=== PATIENT | female | born 1975 | race Caucasian/White ===

== ENCOUNTER 2016-08-21 10:57 | Emergency (ER) | payer BC ==
[2016-08-21 11:16] VITALS: BP 99/58
--- NOTE | 2016-08-21 15:19 | UC ---
Deborah Reardon Claudia, scribed for Judy Pace DO on 08/21/16 at 1305 . Skin Complaint HPI - HPI Summary HPI Summary: 41 year old female presents to the [facility] with discrete facial swelling. Pt notes sudden onset Monday night. She notes that she was doing insomnia exercises where she tightens all the muscles in her body and then relaxes them in efforts to help her sleep. Pt notes that while doing this exercise she felt a "jennifer/snap " from her left lower neck below the mandible. PMHx of TMJ is noted. Pt states since sudden osnet the pain /10 has been constant but the swelling around the left lower jaw and left neck has been consistent and concerned her. Pt notes her Sx are not interfering with her eating, drinking or breathing and she is not having any increased pain while opening and closing her jaw. Pt denies any fever, chills, cough sore throat,N/V/D, abd pain, dizziness, lightheadedness, CP , SOB, muscle/joint pain. PMHx of TMJ, anxiety, OCD - History of Current Complaint Chief Complaint: UC Time Seen by Provider: 08/21/16 12:55 Stated Complaint: FACIAL SWELLING Hx Obtained From: Patient Hx Last Menstrual Period: n/a Onset/Duration: Sudden Onset, Lasting Days, Still Present Onset Severity: Mild - mild-mod Current Severity: Mild - mild-mod Pain Intensity: 4 Location: Other - left jaw Character: Swelling Aggravating: Nothing Alleviating: Nothing Associated Signs & Symptoms: Positive: Tenderness. Negative: Nausea, Vomiting, Diaphoresis, Weakness, Difficulty Breathing, Fever, Chills, Cough, Wheezing, Chest Pain, Hoarseness, Throat Tightening, Abdominal Pain, Lightheadedness, Syncope, Red Streaks - Allergy/Home Medications Allergies/Adverse Reactions: Allergies Allergy/AdvReac Type Severity Reaction Status Date / Time Iodine Allergy Severe Difficulty Verified 08/21/16 11:16 Breathing Shellfish Allergy Allergy Severe Difficulty Verified 08/21/16 11:16 Breathing Home Medications: Home Medications Albuterol HFA INHALER* [Ventolin HFA Inhaler*] 2 PRN 08/21/16 [History] Fluvoxamine (NF) [Luvox (NF)] 100 DAILY 08/21/16 [History] LORazepam TAB(*) [Ativan TAB(*)] 1 PRN 08/21/16 [History] Review of Systems Constitutional: Negative Skin: Other - facial swelling discrete over the left neck, no redness, calor, skin break down Eyes: Negative ENT: Negative Respiratory: Negative Cardiovascular: Negative Gastrointestinal: Negative Genitourinary: Negative Motor: Negative Neurovascular: Negative Musculoskeletal: Negative Neurological: Negative Psychological: Negative All Other Systems Reviewed And Are Negative: Yes PMH/Surg Hx/FS Hx/Imm Hx Previously Healthy: Yes Endocrine History Of: Denies: Diabetes Cardiovascular History Of: Denies: Hypertension, Pacemaker/ICD Respiratory History Of: Reports: Asthma - Surgical History Surgical History: Yes Surgery Procedure, Year, and Place: T&A. TUBAL. PARTIAL HYSTERECTOMY. LAP BAND SURGERY - Family History Known Family History: Positive: Cardiac Disease, Hypertension, Diabetes - Social History Occupation: Employed Full-time Lives: With Family Alcohol Use: Occasionally Substance Use Type: None Smoking Status (MU): Never Smoked Tobacco Physical Exam Triage Information Reviewed: Yes Appearance: Well-Appearing, No Pain Distress, Well-Nourished Vital Signs: Initial Vital Signs Temp 98.6 F 08/21/16 11:08 Pulse 100 08/21/16 11:08 Resp 18 08/21/16 11:08 BP 99/58 08/21/16 11:08 Pulse Ox 98 08/21/16 11:08 Vital Signs Reviewed: Yes Eyes: Positive: Conjunctiva Clear. Negative: Discharge ENT: Positive: Hearing grossly normal, TMs normal. Negative: Muffled/hoarse voice Neck: Positive: Other: - swelling over the left TMJ, tender on the sternocleidomastoid, temporalis and scalenes. No redness, calor or skin break down - no sign of infection. Click appreciated but ROM and strength intact. Very tight mastoids and pterygoids. Respiratory Exam: Normal Respiratory: Positive: Lungs clear, Normal breath sounds, No respiratory distress, No accessory muscle use Cardiovascular Exam: Normal Cardiovascular: Positive: RRR, No Murmur Musculoskeletal Exam: Normal Musculoskeletal: Positive: Strength Intact Neurological Exam: Normal Neurological: Positive: Alert, Muscle Tone Normal Psychological Exam: Normal Psychological: Positive: Age Appropriate Behavior Skin Exam: Normal - dry, warm, nml color Course/Dx - Diagnoses Provider Diagnoses: tmj, muscle strain Discharge - Discharge Plan Condition: Stable Disposition: HOME Prescriptions: Naproxen [Naproxen 500 MG TABS] 500 mg PO BID #10 tab Patient Education Materials: Sprain (ED), Temporomandibular Disorder (ED) Referrals: Stu Whitehead MD [Primary Care Provider] - If Needed (you may want to request physical therapy from your pcp if symptoms do not resolve over 1-2 weeks) Additional Instructions: Please continue to use ibuprofen as needed/directed. For the swelling feel free to use the options we discussed as well as 10/20 minutes of cold compress followed by 10/20 minutes of hot compress. ALTERNATE HOT AND COLD ONE RIGHT AFTER THE OTHER FOR 10-20 MINUTES EACH. ICE PACKS: Apply ice packs frequently against the painful area. Many different schedules are recommended, such as "20 minutes on, 20 minutes off" or "one hour ice, two hours rest." If you need to work, you may need to go longer between ice treatments. You should plan to have the area ice packed AT LEAST one fourth of the time. The ice should be applied over the wrap, tape, or splint, or over a layer of cloth -- not directly against the skin. Some ice bags have a built-in cloth and can be put directly on the skin. WARM PACKS: Apply gentle heat (such as a heating pad or hot water bottle) for about 20 to 30 minutes about every two hours -- at least four times daily. Warmth and elevation will help you make a more rapid recovery, and will ease the pain considerably. Do not use HOT heat, and never apply heat for longer than 30 minutes. The continuous heat can invisibly damage skin and muscles -- even when no burn is seen on the surface. Damaged muscles can make you MORE sore. YOU WOULD LIKELY BENEFIT FROM OSTEOPATHIC TREATMENT. WE RECOMMEND THAT YOU FIND AN OSTEOPATHIC PHYSICIAN IN YOUR AREA WHO FOCUSES EXCLUSIVELY ON OSTEOPATHIC MANIPULATIVE MEDICINE WITH EXPERTISE IN MYOFACIAL, LYMPHATIC, VISCERAL AND INTEROSSEOUS WORK The documentation as recorded by the Deborah sotelo Claudia accurately reflects the service I personally performed and the decisions made by me, Judy Pace DO.
== END 2016-08-21 13:48 | disposition home or self-care (01) ==
LOC: UCEAST 10:57
DX: M26.602 Left temporomandibular joint disorder, unspecified (principal); F42.9 Obsessive-compulsive disorder, unspecified; F41.9 Anxiety disorder, unspecified; T14.8 Other injury of unspecified body region; X50.9XXA Other and unspecified overexertion or strenuous movements or postures, initial encounter; Y92.9 Unspecified place or not applicable; J45.909 Unspecified asthma, uncomplicated
CPT/HCPCS: 99211; G0463

== ENCOUNTER 2016-10-23 10:48 | Emergency (ER) | payer BC ==
[2016-10-23 12:18] LABS: Hematocrit 37 % (35-47); Hemoglobin 12.5 g/dl (12.0-16.0); Mean Corpuscular HGB Conc 34 g/dl (31-36); Mean Corpuscular Hemoglobin 30 pg (27-31); Mean Corpuscular Volume 88 fL (80-97); Mean Platelet Volume 8 um3 (7.4-10.4); Red Blood Count 4.22 10^6/ul (4.0-5.4); Red Cell Distribution Width 13 % (10.5-15); White Blood Count 7.8 10^3/ul (3.5-10.8)
[2016-10-23 12:37] LABS: Albumin 3.9 g/dL (3.2-5.2); C Reactive Protein 7.46 mg/L (< 5.00); Calcium 9.4 mg/dL (8.6-10.3); EGFR African American 103.1 (>60); EGFR Non-African American 80.2 (>60); Globulin 3.3 g/dL (2-4); Potassium 4.2 mmol/L (3.5-5.0); Total Bilirubin 0.3 mg/dL (0.2-1.0); Total Protein 7.2 g/dL (6.4-8.9)
[2016-10-23 13:03] LABS: Urine Bilirubin Negative (Negative); Urine Glucose Negative (Negative); Urine Nitrite Negative (Negative)
[2016-10-23 16:20] VITALS: BP 93/63
--- NOTE | 2016-10-26 18:27 | ED ---
Deborah Reardon Claudia, scribed for Dipesh Vogel MD on 10/23/16 at 1119 . Abdominal Pain/Female - HPI Summary HPI Summary: 41 year old female presents to the ED with LUQ abd pain radiating to her back. Pt notes the pain stated around Monday and has been intermittent since. Pt notes the pain is aggravated with eating and she notices as soon as she has something to eat the pain begins. Pt notes PSHx of Lap-band Surgery in 2011 and is monitored by Dr. Camacho. Pt went to his office on Monday to have fluids removed because she was having difficulty eating and then on Monday at he rest of the fluid was removed. Pt notes she has been on a liquid diet and states she has only been keeping down a small amount since Monday because it is getting regurgitated. Pt admits to low grade fever on Monday and diarrhea 2 days ago. Pt also noted pressure in her chest since Monday or Monday and is unsure if it is due to the increase in gas or SOB. She notes that she has never had a problem like this in the past because there is no food obstructed in her esophagus or stomach or any fluid that is obstructing her. Usually when they release the fluid she feels better but that has not been the case this week. - History of Current Complaint Chief Complaint: EDAbdPain Stated Complaint: ABD APIN Time Seen by Provider: 10/23/16 10:59 Hx Obtained From: Patient Hx Last Menstrual Period: n/a Pain Intensity: 5 Pain Scale Used: 0-10 Numeric Location: Discrete At: LUQ Radiates: Yes Radiates to: Back Character: Cramping Aggravating Factor(s): Nothing Alleviating Factor(s): Nothing Allergies/Adverse Reactions: Allergies Allergy/AdvReac Type Severity Reaction Status Date / Time Iodine Allergy Severe Difficulty Verified 08/21/16 11:16 Breathing Shellfish Allergy Allergy Severe Difficulty Verified 08/21/16 11:16 Breathing PMH/Surg Hx/FS Hx/Imm Hx Previously Healthy: Yes Endocrine/Hematology History: Denies: Hx Diabetes Cardiovascular History: Denies: Hx Hypertension, Hx Pacemaker/ICD Respiratory History: Reports: Hx Asthma Sensory History: Denies: Hx Hearing Aid Psychiatric History: Reports: Hx Panic Disorder - Surgical History Surgery Procedure, Year, and Place: T&A. TUBAL. PARTIAL HYSTERECTOMY. LAP BAND SURGERY Infectious Disease History: No Infectious Disease History: Denies: Traveled Outside the [place] in Last 30 Days - Family History Known Family History: Positive: Cardiac Disease, Hypertension, Diabetes - Social History Occupation: Employed Full-time Lives: With Family Alcohol Use: Occasionally Substance Use Type: Reports: None Smoking Status (MU): Never Smoked Tobacco Review of Systems Constitutional: Negative Negative: Fever, Chills Eyes: Negative Negative: Erythema ENT: Negative Negative: Sore Throat Cardiovascular: Negative Negative: Chest Pain Respiratory: Negative Negative: Shortness Of Breath, Cough Positive: Abdominal Pain. Negative: Vomiting, Nausea Genitourinary: Negative Negative: dysuria, hematuria Musculoskeletal: Negative Negative: Myalgia Skin: Negative Negative: Rash Neurological: Negative Psychological: Normal All Other Systems Reviewed And Are Negative: Yes Physical Exam - Summary Physical Exam Summary: Constitutional: Well-developed, Well-nourished, Alert. (-) Distressed Skin: Warm, Dry HENT: Normocephalic; Atraumatic Eyes: Conjunctiva normal Neck: Musculoskeletal ROM normal neck. (-) JVD, (-) Stridor, (-) Tracheal deviation Cardio: Rhythm regular, rate normal, Heart sounds normal; Intact distal pulses; The pedal pulses are 2+ and symmetric. Radial pulses are 2+ and symmetric. (-) Murmur Pulmonary/Chest wall: Effort normal. (-) Respiratory distress, (-) Wheezes, (-) Rales Abd: Soft (-) Distension, (-) Guarding, (-) Rebound LUQ TENDERNESS Musculoskeletal: (-) Edema Lymph: (-) Cervical adenopathy Neuro: Alert, Oriented x3 Psych: Mood and affect Normal Triage Information Reviewed: Yes Vital Signs On Initial Exam: Initial Vitals Temp Pulse Resp BP Pulse Ox 97.5 F 86 20 106/52 100 10/23/16 10:53 10/23/16 10:53 10/23/16 10:53 10/23/16 10:53 10/23/16 10:53 Vital Signs Reviewed: Yes Diagnostics - Vital Signs Vital Signs Temp Pulse Resp BP Pulse Ox 10/23/16 10:56 97.5 F 91 20 106/52 100 10/23/16 10:53 97.5 F 86 20 106/52 100 - Laboratory Lab Results: Lab Results 10/23/16 10/23/16 10/23/16 Range/Units 12:10 12:10 12:10 WBC 7.8 (3.5-10.8) 10^3/ul RBC 4.22 (4.0-5.4) 10^6/ul Hgb 12.5 (12.0-16.0) g/dl Hct 37 (35-47) % MCV 88 (80-97) fL MCH 30 (27-31) pg MCHC 34 (31-36) g/dl RDW 13 (10.5-15) % Plt Count 207 (150-450) 10^3/ul MPV 8 (7.4-10.4) um3 Neut % (Auto) 61.9 (38-83) % Lymph % (Auto) 28.1 (25-47) % [place] % (Auto) 4.4 (1-9) % Eos % (Auto) 4.8 (0-6) % Baso % (Auto) 0.8 (0-2) % Absolute Neuts (auto) 4.8 (1.5-7.7) 10^3/ul Absolute Lymphs (auto) 2.2 (1.0-4.8) 10^3/ul Absolute Monos (auto) 0.3 (0-0.8) 10^3/ul Absolute Eos (auto) 0.4 (0-0.6) 10^3/ul Absolute Basos (auto) 0.1 (0-0.2) 10^3/ul Absolute Nucleated RBC 0 10^3/ul Nucleated RBC % 0 Sodium 139 (133-145) mmol/L Potassium 4.2 (3.5-5.0) mmol/L Chloride 103 (101-111) mmol/L Carbon Dioxide 30 (22-32) mmol/L Anion Gap 6 (2-11) mmol/L BUN 15 (6-24) mg/dL Creatinine 0.79 (0.51-0.95) mg/dL Est GFR ( Amer) 103.1 (>60) Est GFR (Non-Af Amer) 80.2 (>60) BUN/Creatinine Ratio 19.0 (8-20) Glucose 103 H (70-100) mg/dL Lactic Acid 0.8 (0.5-2.0) mmol/L Calcium 9.4 (8.6-10.3) mg/dL Total Bilirubin 0.30 (0.2-1.0) mg/dL AST 15 (13-39) U/L ALT 9 (7-52) U/L Alkaline Phosphatase 66 (34-104) U/L C-Reactive Protein 7.46 H (< 5.00) mg/L Total Protein 7.2 (6.4-8.9) g/dL Albumin 3.9 (3.2-5.2) g/dL Globulin 3.3 (2-4) g/dL Albumin/Globulin Ratio 1.2 (1-3) Lipase 25 (11.0-82.0) U/L Urine Color Urine Appearance Urine pH (5-9) Ur Specific [place] (1.010-1.030) Urine Protein (Negative) Urine Ketones (Negative) Urine Blood (Negative) Urine Nitrate (Negative) Urine Bilirubin (Negative) Urine Urobilinogen (Negative) Ur Leukocyte Esterase (Negative) Urine Glucose (Negative) 10/23/16 Range/Units 12:55 WBC (3.5-10.8) 10^3/ul RBC (4.0-5.4) 10^6/ul Hgb (12.0-16.0) g/dl Hct (35-47) % MCV (80-97) fL MCH (27-31) pg MCHC (31-36) g/dl RDW (10.5-15) % Plt Count (150-450) 10^3/ul MPV (7.4-10.4) um3 Neut % (Auto) (38-83) % Lymph % (Auto) (25-47) % [place] % (Auto) (1-9) % Eos % (Auto) (0-6) % Baso % (Auto) (0-2) % Absolute Neuts (auto) (1.5-7.7) 10^3/ul Absolute Lymphs (auto) (1.0-4.8) 10^3/ul Absolute Monos (auto) (0-0.8) 10^3/ul Absolute Eos (auto) (0-0.6) 10^3/ul Absolute Basos (auto) (0-0.2) 10^3/ul Absolute Nucleated RBC 10^3/ul Nucleated RBC % Sodium (133-145) mmol/L Potassium (3.5-5.0) mmol/L Chloride (101-111) mmol/L Carbon Dioxide (22-32) mmol/L Anion Gap (2-11) mmol/L BUN (6-24) mg/dL Creatinine (0.51-0.95) mg/dL Est GFR ( Amer) (>60) Est GFR (Non-Af Amer) (>60) BUN/Creatinine Ratio (8-20) Glucose (70-100) mg/dL Lactic Acid (0.5-2.0) mmol/L Calcium (8.6-10.3) mg/dL Total Bilirubin (0.2-1.0) mg/dL AST (13-39) U/L ALT (7-52) U/L Alkaline Phosphatase (34-104) U/L C-Reactive Protein (< 5.00) mg/L Total Protein (6.4-8.9) g/dL Albumin (3.2-5.2) g/dL Globulin (2-4) g/dL Albumin/Globulin Ratio (1-3) Lipase (11.0-82.0) U/L Urine Color Straw Urine Appearance Clear Urine pH 6.0 (5-9) Ur Specific [place] 1.004 L (1.010-1.030) Urine Protein Negative (Negative) Urine Ketones Negative (Negative) Urine Blood Negative (Negative) Urine Nitrate Negative (Negative) Urine Bilirubin Negative (Negative) Urine Urobilinogen Negative (Negative) Ur Leukocyte Esterase Negative (Negative) Urine Glucose Negative (Negative) Result Diagrams: 10/23/16 12:10 10/23/16 12:10 Lab Statement: Any lab studies that have been ordered have been reviewed, and results considered in the medical decision making process. Re-Evaluation - Re-Evaluation 1 Re-Evaluation Time: 15:17 Change: Improved Comment: Pt is improved and tolerated PO intake in the ED. Pt is agreeable to be d/c home with follow-up with Dr. Vallecillo tomorrow. Abdominal Pain Fem Course/Dx - Course Course Of Treatment: AP: Pt will be d/c home with follow-up with Dr. Vallecillo tomorrow as per his request. Pt tolerated PO in ED and is agreeable with the plan to be d/c home. - Diagnoses Provider Diagnoses: Abdominal pain - Provider Notifications Discussed Care Of Patient With: Call out to Dr. Vallecillo. He referred her to ED earier today. Unfortunately he is unable to return the call as he is still in surgery 1451. Dr. Vallecillo returned the call [phone] and stated that she should be d/c and follow-up with her tomorrow. Discharge - Discharge Plan Condition: Stable Disposition: HOME Patient Education Materials: Abdominal Pain (ED) Referrals: Stu Whitehead MD [Primary Care Provider] - Stu Vallecillo MD [Medical Doctor] - 1 Day (Plesse follow-up tomorrow. ) The documentation as recorded by the Deborah sotelo Claudia accurately reflects the service I personally performed and the decisions made by me, Dipesh Vogel MD.
== END 2016-10-23 16:15 | disposition home or self-care (01) ==
LOC: ED 10:48
DX: R10.12 Left upper quadrant pain (principal)
CPT/HCPCS: 36415; 80053; 81003; 83605; 83690; 85025; 86140; 99282

== ENCOUNTER 2016-11-15 08:23 | Day surgery (SDC) | payer BC ==
[~2016-11-15 08:23] MED LIST: NS 0.9% 1000 ML* 1,000 ML IV SCH; Sodium Citrate/Citric Acid* 15 ML UDC PO ONE
[2016-11-15] MEDS ORDERED: Sodium Citrate/Citric Acid* 15 ML UDC ONE (08:25)
[2016-11-15] MEDS ORDERED: Bupivacaine 0.5% W/EPI SDV* 30 ML VIAL ONE (09:06)
[2016-11-15] MEDS ORDERED: fentaNYL* 50 MCG/ML 2 ML VIAL (100 MCG VIAL) ONE (10:05)
[2016-11-15] MEDS ORDERED: Lidocaine 2% PF * 5 ML VIAL ONE (10:19)
[2016-11-15] MEDS ORDERED: Dexamethasone IV* 4 MG/ML 1 ML (4 MG) ONE (10:19)
[2016-11-15] MEDS ORDERED: Propofol* 10 MG/ML 20 ML BTL IV PUSH ONE (10:19)
[2016-11-15] MEDS ORDERED: Succinylcholine* 20 MG/ML 10 ML VIAL ONE (10:19)
[2016-11-15] MEDS ORDERED: Cisatracurium* 2 MG/ML MDV 5 ML ONE (10:20)
[2016-11-15] MEDS ORDERED: Glycopyrrolate IV* 0.2 MG/ML 1 ML VIAL ONE (10:45)
[2016-11-15] MEDS ORDERED: Neostigmine Methylsulfate* 2 MG/2 ML SYRINGE ONE (10:45)
[2016-11-15] MEDS ORDERED: Ketorolac INJ* 30 MG/ML 1 ML VIAL ONE (10:46)
[2016-11-15] MEDS ORDERED: oxyCODONE/Acetamin 5/325 MG* TAB PO PRN (11:12)
[2016-11-15 12:04] VITALS: BP 112/52
[2016-11-15] MEDS ORDERED: fentaNYL* 50 MCG/ML 2 ML VIAL (100 MCG VIAL) IV PRN (12:54)
--- NOTE | 2016-11-16 06:18 | OP ---
OPERATIVE REPORT: DATE OF OPERATION: 11/15/16 - [facility] DATE OF : 75 SURGEON: Stu Vallecillo MD PAINT FORMULATOR: GIOVANNY Suazo ANESTHESIOLOGIST: Frank Nj DO ANESTHESIA: General endotracheal. PRE-OP DIAGNOSES: Dysphagia/odynophagia, status post lap band. POST-OP DIAGNOSES: Dysphagia/odynophagia, status post lap band. OPERATIVE PROCEDURE: Laparoscopic removal of laparoscopic adjustable gastric band and subcutaneous components. ESTIMATED BLOOD LOSS: Minimal. IV FLUIDS: Crystalloid. SPECIMEN: None. DRAINS: None. COMPLICATIONS: None. COUNTS: The instrument, needle, and sponge counts were correct. DESCRIPTION OF PROCEDURE: The patient was brought to the operating room and placed on the table supine. Sequential compression devices were placed on both lower extremities. General anesthesia was administered. The abdomen was prepped and draped in the usual sterile fashion and a time-out was performed. Local anesthetic was infiltrated into the skin and soft tissue prior to making each incision. The initial incision was through the scar overlying the area of the port. The subcutaneous tissues were divided with cautery and then the port was identified. It was freed from the fascial attachments using sharp dissection and then the tubing was traced back to the peritoneum. The opening in the peritoneum was opened with a clamp and then a 12 mm trocar was placed intraperitoneally and carbon dioxide was insufflated to a pressure of 15 mmHg. Under direct visualization, additional 5 mm trocars were placed; 2 in the left upper quadrant, 1 in the right upper quadrant, and then the tubing for the band was visualized overlying the superior aspect of the left lobe of the liver. There was some encapsulation there, which was divided sharply and then the tube was able to be brought inferiorly. The liver was able to be retracted superiorly and the tubing was traced to the band itself. The capsule of the band was incised with cautery and the buckle of the band was released and the buckle was trimmed and removed so that the band could be removed from its retrogastric tunnel. The capsule of the band anteriorly was incised sharply so as to free it. Then, the band tubing was divided and the band was removed from the abdominal cavity. Hemostasis was assured. Ports were removed under direct visualization and carbon dioxide was released. The fascia was closed with 0 Polysorb in the interrupted fashion. The skin incisions were closed with 4-0 Monocryl. Steri-Strips and dressings were applied. The patient tolerated the procedure well and was extubated and transferred to recovery room in stable condition. CC: Stu Whitehead MD* [id number]/[facility] #: [id number] MTDD
== END 2016-11-15 12:27 | disposition home or self-care (01) ==
LOC: OR 08:23
PROVIDERS: ATTEND Surgery
DX: R13.19 Other dysphagia (principal); Z98.84 Bariatric surgery status; Z87.891 Personal history of nicotine dependence; K21.9 Gastro-esophageal reflux disease without esophagitis
CPT/HCPCS: A9270-GY; J0330; J1100; J1885; J2704; J3010

== ENCOUNTER 2018-09-25 13:26 | Emergency (ER) | payer OTHER ==
--- NOTE | 2018-09-25 13:54 | ED ---
Head Injury - HPI Summary HPI Summary: This pt is a 43 y/o female presenting [place] [facility] [place] today. 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 Denies LOC. She currently states dizziness, headache, neck pain, nausea. Denies hx of anticoagulants. PMHx includes hysterectomy. - History Of Current Complaint Chief Complaint: EDHeadInjury Stated Complaint: PT STATES GLASS PETITION FELL ON HER HEAD PER PT Time Seen by Provider: 09/25/18 13:51 Hx Obtained From: Patient Hx Last Menstrual Period: n/a Mechanism Of Injury: Direct Blow Onset/Duration: Started Minutes Ago, Still Present Onset of Pain: Immediate Severity Initially: Moderate Pain Intensity: 5 Pain Scale Used: 0-10 Numeric Location of Head Injury: Diffuse Aggravating Factor(s): Other: - nothing Alleviating Factor(s): Other: - nothing Associated Signs And Symptoms: Neck Pain, Nausea, Headache, Other: - POSITIVE: dizziness. NEGATIVE: LOC, fever. - Allergies/Home Medications Allergies/Adverse Reactions: Allergies Allergy/AdvReac Type Severity Reaction Status Date / Time iodine Allergy Difficulty Verified 09/25/18 14:25 Breathing shellfish derived Allergy Difficulty Verified 09/25/18 14:25 Breathing Home Medications: Home Medications ALPRAZolam [Alprazolam] 1 mg PO DAILY PRN 09/25/18 [History Confirmed 09/25/18] PMH/Surg Hx/FS Hx/Imm Hx Endocrine/Hematology History: Denies: Hx Diabetes Cardiovascular History: Denies: Hx Hypertension, Hx Pacemaker/ICD Respiratory History: Reports: Hx Asthma - PRN INHALER GI History: Reports: Hx Gastroesophageal Reflux Disease - ON MEDICATION FOR Sensory History: Reports: Hx Contacts or Glasses - INSTRUCTS GIVEN Denies: Hx Hearing Aid Opthamlomology History: Reports: Hx Contacts or Glasses - INSTRUCTS GIVEN Neurological History: Reports: Hx Migraine - 1 Q 3 MONTHS- TX DEPENDS OF SEVERITY PER PATIENT Psychiatric History: Reports: Hx Anxiety - ON MEDICATION FOR, Hx Depression - ON MEDICATION FOR, Hx Panic Disorder - Surgical History Surgery Procedure, Year, and Place: T&A. TUBAL. PARTIAL HYSTERECTOMY. LAP BAND SURGERY. D&C. TOOTH EXTRACTION WITH ANESTHESIA Hx Anesthesia Reactions: No Infectious Disease History: No Infectious Disease History: Denies: Traveled Outside the [place] in Last 30 Days - Family History Known Family History: Positive: Cardiac Disease, Hypertension, Diabetes - Social History Alcohol Use: Occasionally Substance Use Type: Reports: None Smoking Status (MU): Former Smoker Amount Used/How Often: 1/2 PPD X 5 YEARS Have You Smoked in the Last Year: No Review of Systems Negative: Fever Positive: Nausea Musculoskeletal: Other - POS: neck pain Neurological: Other - POS: dizziness Positive: Headache All Other Systems Reviewed And Are Negative: Yes Physical Exam - Summary Physical Exam Summary: VITAL SIGNS: Reviewed. GENERAL: Patient is a well-developed and nourished female who is lying comfortable in the stretcher. Patient is not in any acute respiratory distress. HEAD AND FACE: Normocephalic EYES: PERRLA, EOMI x 2. EARS: Hearing grossly intact. MOUTH: Oropharynx within normal limits. NECK: Supple, trachea is midline, no adenopathy, no JVD, no carotid bruit. CHEST: Symmetric, no tenderness at palpation LUNGS: Clear to auscultation bilaterally. No wheezing or crackles. CVS: Regular rate and rhythm, S1 and S2 present, no murmurs or gallops appreciated. ABDOMEN: Soft, non-tender. Bowel sounds are normal. No abdominal abnormal pulsations. EXTREMITIES: Full ROM in all major joints, no edema, no cyanosis or clubbing. NEURO: Alert and oriented x 3. No acute neurological deficits. Speech is normal and follows commands. SKIN: Dry and warm GCS: 15 Triage Information Reviewed: Yes Vital Signs On Initial Exam: Initial Vitals Temp Pulse Resp BP Pulse Ox 98.7 F 107 18 113/83 96 09/25/18 13:29 09/25/18 13:29 09/25/18 13:29 09/25/18 13:29 09/25/18 13:29 Vital Signs Reviewed: Yes Diagnostics - Vital Signs Vital Signs Temp Pulse Resp BP Pulse Ox 09/25/18 13:29 98.7 F 107 18 113/83 96 - Laboratory Lab Statement: Any lab studies that have been ordered have been reviewed, and results considered in the medical decision making process. - CT Cervical spine CT CT Interpretation Completed By: Radiologist Summary of CT Findings: IMPRESSION: No fracture of the cervical spine is noted. Dr. Branch has reviewed this report. Brain CT CT Interpretation Completed By: Radiologist Summary of CT Findings: IMPRESSION: No CT evidence for traumatic brain injury. Negative exam. Dr. Branch has reviewed this report. Head Injury Course/Dx Assessment/Plan: Patient is a 43-year-old female who presents to the emergency room complaining of head contusion. Head CT impression: No evidence of traumatic brain injury. Negative exam. C-spine CT impression: No fracture of the cervical spine noted. In the ED course the patient has no other complaints. The patient was given Tylenol for the pain therefore the patient was discharged home with follow-up from her primary care physician. Patient is hemodynamically stable, alert and oriented 3. - Diagnoses Differential Diagnosis/HQI/PQRI: Cerebral Contusion, Cervical Sprain, Concussion Without LOC, Contusion Provider Diagnoses: Head contusion, Neck pain Discharge - Sign-Out/Discharge Documenting (check all that apply): Patient Departure - Discharge home Patient Received Moderate/Deep Sedation with Procedure: No - Discharge Plan Condition: Stable Disposition: HOME Patient Education Materials: Contusion in Adults (ED), Neck Pain (ED) Referrals: Stu Whitehead MD [Primary Care Provider] - Additional Instructions: PLEASE FOLLOW UP WITH YOUR PRIMARY CARE PROVIDER IN 2-3 DAYS. RETURN TO THE ED FOR ANY WORSENING OR NEW SYMPTOMS. - Billing Disposition and Condition Condition: STABLE Disposition: Home - Attestation Statements Document Initiated by Renee: Yes Documenting Scribe: Shawna Jackson Provider For Whom Renee is Documenting (Include Credential): Clarence Barnch MD Scribe Attestation: Shawna Reardon scribed for Clarence Branch MD on 09/25/18 at 1841. Scribe Documentation Reviewed: Yes Provider Attestation: The documentation as recorded by the Shawna sotelo accurately reflects the service I personally performed and the decisions made by me, Clarence Branch MD Status of Scribe Document: Viewed
[2018-09-25] MEDS ORDERED: Acetaminophen TAB* 325 MG PO ONE (14:39)
[2018-09-25 15:31] VITALS: BP 106/52
== END 2018-09-25 15:30 | disposition home or self-care (01) ==
LOC: ED 13:26
DX: S00.93XA Contusion of unspecified part of head, initial encounter (principal); M54.2 Cervicalgia; W20.8XXA Other cause of strike by thrown, projected or falling object, initial encounter; Y92.238 Other place in hospital as the place of occurrence of the external cause; Y99.0 Civilian activity done for income or pay; J45.909 Unspecified asthma, uncomplicated; K21.9 Gastro-esophageal reflux disease without esophagitis; F41.9 Anxiety disorder, unspecified; F32.9 Major depressive disorder, single episode, unspecified; Z88.8 Allergy status to other drugs, medicaments and biological substances; Z79.899 Other long term (current) drug therapy; Z87.891 Personal history of nicotine dependence
CPT/HCPCS: 70450; 72125; 99282; A9270-GY

== ENCOUNTER 2018-11-20 11:18 | Emergency (ER) | payer BC ==
[2018-11-20] MEDS ORDERED: Aspirin 81 mg CHEW TAB* 81 MG TAB.CHEW PO ONE (12:04)
[2018-11-20] MEDS ORDERED: Metoprolol Tartrate IV* 1 MG/ML 5 ML VIAL IV ONE (12:04)
[2018-11-20 12:18] LABS: ABS Basophils 0.1 10^3/ul (0-0.2); ABS Eosinophils 0.1 10^3/ul (0-0.6); ABS Lymphocytes 1.9 10^3/ul (1.0-4.8); ABS Monocytes 0.4 10^3/ul (0-0.8); ABS Neutrophils 7.7 10^3/ul (1.5-7.7); Eosinophil % 1.2 %; Hematocrit 38 % (35-47); Hemoglobin 12.5 g/dL (12.0-16.0); Lymphocyte % 18.8 %; Mean Corpuscular HGB Conc 33 g/dL (31-36); Mean Corpuscular Hemoglobin 29 pg (27-31); Mean Corpuscular Volume 86 fL (80-97); Mean Platelet Volume 7.4 fL (7.4-10.4); Platelet Count 247 10^3/uL (150-450); Red Blood Count 4.35 10^6 /uL (3.70-4.87); Red Cell Distribution Width 15 % (10.5-15); White Blood Count 10.3 10^3/uL (3.5-10.8)
--- NOTE | 2018-11-20 12:28 | ED ---
HPI Chest Pain - HPI Summary HPI Summary: This patient is a 43 year old F presenting to [facility] with a chief complaint of aching chest pain since 11/16/18 that has been intermittent with the current episode lasting 1 hour that are usually improved with resting. During the episodes the patient reports SOB and nausea. The pt denies any fevers, productive coughing and vomiting. The pt reported that her medication causes headaches and dizziness. The pt reported that exertion brought the episodes on more frequently. She has a pertinent history of PVC, which she reports has increased in the past couple days, asthma, and a hysterectomy. She stated that her inhaler did not help with alleviating any symptoms. The pt stated that she stated Buspar 1 week ago. Pts father has a pacemaker. - History of Current Complaint Chief Complaint: EDChestPainROMI Time Seen by Provider: 11/20/18 11:47 Hx Obtained From: Patient Hx Last Menstrual Period: n/a Onset/Duration: Started Days Ago - 11/16/18, Resolved - no current episode Timing: Intermittent, Lasting Minutes, Lasting Hours - last episode lasted 1 hour Initial Severity: Moderate Current Severity: Moderate Pain Intensity: 5 Pain Scale Used: 0-10 Numeric Chest Pain Location: Left Anterior Character: Other: - aching Aggravating Factor(s): Exertion Alleviating Factor(s): Rest Associated Signs and Symptoms: Positive: Chest Pain, Headaches - Side effect of medications, Dizziness - Side effect of medications, Nausea. Negative: Fever, Productive Cough, Vomiting - Allergy/Home Medications Allergies/Adverse Reactions: Allergies Allergy/AdvReac Type Severity Reaction Status Date / Time iodine Allergy Difficulty Verified 11/20/18 12:36 Breathing shellfish derived Allergy Difficulty Verified 11/20/18 12:36 Breathing Home Medications: Home Medications BuPROPion XL* [Bupropion XL*] 300 mg PO QAM 11/20/18 [History Confirmed 11/20/18 ] Bupropion XL* [Wellbutrin XL *] 150 mg PO QAM 11/20/18 [History Confirmed ] PMH/Surg Hx/FS Hx/Imm Hx Previously Healthy: No Endocrine/Hematology History: Denies: Hx Diabetes Cardiovascular History: Denies: Hx Hypertension, Hx Pacemaker/ICD Respiratory History: Reports: Hx Asthma - PRN INHALER GI History: Reports: Hx Gastroesophageal Reflux Disease - ON MEDICATION FOR Sensory History: Reports: Hx Contacts or Glasses - INSTRUCTS GIVEN Denies: Hx Hearing Aid Opthamlomology History: Reports: Hx Contacts or Glasses - INSTRUCTS GIVEN Neurological History: Reports: Hx Migraine - 1 Q 3 MONTHS- TX DEPENDS OF SEVERITY PER PATIENT Psychiatric History: Reports: Hx Anxiety - ON MEDICATION FOR, Hx Depression - ON MEDICATION FOR, Hx Panic Disorder - Surgical History Surgery Procedure, Year, and Place: T&A. TUBAL. PARTIAL HYSTERECTOMY. LAP BAND SURGERY. D&C. TOOTH EXTRACTION WITH ANESTHESIA Hx Anesthesia Reactions: No Infectious Disease History: No Infectious Disease History: Denies: Traveled Outside the [place] in Last 30 Days - Family History Known Family History: Positive: Cardiac Disease, Hypertension, Diabetes - Social History Alcohol Use: Occasionally Hx Substance Use: No Substance Use Type: Reports: None Hx Tobacco Use: Yes Smoking Status (MU): Former Smoker Amount Used/How Often: 1/2 PPD X 5 YEARS Have You Smoked in the Last Year: No Review of Systems Positive: Other - Positive: dizziness: side effect of medications. Negative: Fever Positive: Chest Pain - aching Positive: Shortness Of Breath. Negative: Cough - Negative: non-productive cough Positive: Nausea. Negative: Vomiting Positive: Headache - Side effect of medications All Other Systems Reviewed And Are Negative: Yes Physical Exam - Summary Physical Exam Summary: Appearance: well appearing, no pain distress Skin: warm, dry, reflects adequate perfusion Head/face: normal Eyes: EOMI, ELBERT ENT: mucous membranes moist, No JVD Neck: supple, non-tender Respiratory: CTA, breath sounds present, clear to auscultation Cardiovascular: RRR, pulses symmetrical, trace edema in LE Abdomen: non-tender, soft Bowel Sounds: present Musculoskeletal: normal, strength/ROM intact Neuro: normal, sensory motor intact, A&Ox3 Triage Information Reviewed: Yes Vital Signs On Initial Exam: Initial Vitals Temp Pulse Resp BP Pulse Ox 97.9 F 101 20 112/76 97 11/20/18 11:20 11/20/18 11:20 11/20/18 11:20 11/20/18 11:20 11/20/18 11:20 Vital Signs Reviewed: Yes Diagnostics - Vital Signs Vital Signs Temp Pulse Resp BP Pulse Ox 11/20/18 11:20 97.9 F 101 20 112/76 97 - Laboratory Lab Results: Lab Results 11/20/18 Range/Units 12:10 WBC 10.3 (3.5-10.8) 10^3/uL RBC 4.35 (3.70-4.87) 10^6 /uL Hgb 12.5 (12.0-16.0) g/dL Hct 38 (35-47) % MCV 86 (80-97) fL MCH 29 (27-31) pg MCHC 33 (31-36) g/dL RDW 15 (10.5-15) % Plt Count 247 (150-450) 10^3/uL MPV 7.4 (7.4-10.4) fL Neut % (Auto) 75.0 % Lymph % (Auto) 18.8 % Brooke % (Auto) 4.2 % Eos % (Auto) 1.2 % Baso % (Auto) 0.8 % Absolute Neuts (auto) 7.7 (1.5-7.7) 10^3/ul Absolute Lymphs (auto) 1.9 (1.0-4.8) 10^3/ul Absolute Monos (auto) 0.4 (0-0.8) 10^3/ul Absolute Eos (auto) 0.1 (0-0.6) 10^3/ul Absolute Basos (auto) 0.1 (0-0.2) 10^3/ul Absolute Nucleated RBC 0.0 10^3/ul Nucleated RBC % 0.0 Result Diagrams: 11/20/18 12:10 11/20/18 12:10 Lab Statement: Any lab studies that have been ordered have been reviewed, and results considered in the medical decision making process. - CT CXR CT Interpretation Completed By: Radiologist Summary of CT Findings: No evidence for acute intrathoracic disease. ED Physician has revieweed this report. - EKG 1126 Cardiac Rate: NL - 96bpm EKG Rhythm: Sinus Rhythm ST Segment: Normal Summary of EKG Findings: NSR: 96 bpm, Normal [place], Normal Interval. - Additional Comments Diagnostic Additional Comments: LUNG SCAN-VQ NM as read by radiologist: IMPRESSION: LOW PROBABILITY VQ SCAN. ED provider has reviewed this report. Re-Evaluation - Re-Evaluation 1 Re-Evaluation Time: 13:52 Change: Improved Comment: Discussing results with patient. Patient says her sx are resolved. Chest Pain Course/Dx - Course Course Of Treatment: Nurses notes reviewed. Patient with chest pain and shortness of breath with mildly elevated d-dimer. She is allergic to contrast so a CT PE could not be obtained. VQ was low probability. She has no asymmetric swelling in her legs. She is fully asymptomatic at present and will follow closely with her primary care physician for outpatient reevaluation and testing. - Chest Pain Differential Diagnosis/HQI/PQRI: Acute NV, ACS, Angina, Chest Wall, GI Disease, Lower Respiratory Infection, Pulmonary Embolism - Diagnoses Provider Diagnoses: Chest pain, Dyspnea Discharge - Sign-Out/Discharge Documenting (check all that apply): Patient Departure - D/C Patient Received Moderate/Deep Sedation with Procedure: No - Discharge Plan Condition: Improved Disposition: HOME Patient Education Materials: Chest Pain (ED) Forms: *Work Release Referrals: Stu Whitehead MD [Primary Care Provider] - Additional Instructions: Call your doctor today to schedule prompt follow-up. He may need some additional outpatient testing. See her doctor for reevaluation. Stay well- hydrated, take a multivitamin daily. Return if worse, difficulty breathing, palpitations, ongoing chest pain or other concerns. - Billing Disposition and Condition Condition: IMPROVED Disposition: Home - Attestation Statements Document Initiated by Darlingiblily: Yes Documenting Scribe: Alexander Black Provider For Whom Scribe is Documenting (Include Credential): Sivakumar Rachel MD Scribe Attestation: Alexander Reardon, scribed for Sivakumar Rachel MD on 11/20/18 at 1658. Scribe Documentation Reviewed: Yes Provider Attestation: The documentation as recorded by the Alexander sotelo accurately reflects the service I personally performed and the decisions made by , Sivakumar Rachel MD Status of Scribe Document: Viewed
[2018-11-20 12:30] LABS: INR 1.03 (0.82-1.09)
[2018-11-20 12:44] LABS: Albumin 4.1 g/dL (3.2-5.2); Albumin/Globulin Ratio 1.3 (1-3); BUN/Creatinine Ratio 19.2 (8-20); Calcium 9.1 mg/dL (8.6-10.3); EGFR African American 97.5 (>60); EGFR Non-African American 80.6 (>60); Globulin 3.1 g/dL (2-4); Potassium 4.2 mmol/L (3.5-5.0); Total Bilirubin 0.3 mg/dL (0.2-1.0); Total Protein 7.2 g/dL (6.4-8.9)
[2018-11-20 14:02] VITALS: BP 122/63
== END 2018-11-20 14:02 | disposition home or self-care (01) ==
LOC: ED 11:18
DX: R07.9 Chest pain, unspecified (principal); R06.00 Dyspnea, unspecified; F32.9 Major depressive disorder, single episode, unspecified; F41.9 Anxiety disorder, unspecified; J45.909 Unspecified asthma, uncomplicated; K21.9 Gastro-esophageal reflux disease without esophagitis; Z87.891 Personal history of nicotine dependence
CPT/HCPCS: 36415; 71045; 78582; 80053; 83605; 84484; 85025; 85379; 85610; 93005; 99283; A9270-GY; A9540; A9558; J3490

== ENCOUNTER 2018-12-01 03:10 | Emergency (ER) | payer BC, OTHER ==
--- NOTE | 2018-12-01 03:30 | ED ---
Palpitations / Dysrhythmia - HPI Summary HPI Summary: A 43 y/o F presents to ED c/o racing palpitations with PVCs onset 0300 this date. Associated sx: CP described as tightness, tachypnea. Denies tingling in bilat hands and face. Yesterday evening, she had 3-4 glasses of wine. She went to sleep around 2300 yesterday. Similar sx previously, and was seen at [facility] on 11/20/2018 and had full workup with VQ scan, low probability. She states these episodes are happening more frequently. She is scheduled to see Dr. Sinclair, cardiology. She is not on control pills. Surgical history: partial- hysterectomy. Non-smoker. - History of Current Complaint Chief Complaint: EDDysrhythmPalp Time Seen by Provider: 12/01/18 03:29 Hx Obtained From: Patient Onset/Duration: Sudden Onset, Lasting Minutes, Still Present Timing: Constant Character: Fast, Irregular - PVCs Associated Signs & Symptoms: Chest Pain - "tightness" - Allergy/Home Medications Allergies/Adverse Reactions: Allergies Allergy/AdvReac Type Severity Reaction Status Date / Time iodine Allergy Difficulty Verified 12/01/18 03:23 Breathing shellfish derived Allergy Difficulty Verified 12/01/18 03:23 Breathing PMH/Surg Hx/FS Hx/Imm Hx Previously Healthy: No Endocrine/Hematology History: Denies: Hx Diabetes Cardiovascular History: Denies: Hx Hypertension, Hx Pacemaker/ICD Respiratory History: Reports: Hx Asthma - PRN INHALER GI History: Reports: Hx Gastroesophageal Reflux Disease - ON MEDICATION FOR Sensory History: Reports: Hx Contacts or Glasses - INSTRUCTS GIVEN Denies: Hx Hearing Aid Opthamlomology History: Reports: Hx Contacts or Glasses - INSTRUCTS GIVEN Neurological History: Reports: Hx Migraine - 1 Q 3 MONTHS- TX DEPENDS OF SEVERITY PER PATIENT Psychiatric History: Reports: Hx Anxiety - ON MEDICATION FOR, Hx Depression - ON MEDICATION FOR, Hx Panic Disorder - Surgical History Surgery Procedure, Year, and Place: T&A. TUBAL. PARTIAL HYSTERECTOMY. LAP BAND SURGERY. D&C. TOOTH EXTRACTION WITH ANESTHESIA Hx Anesthesia Reactions: No Infectious Disease History: No Infectious Disease History: Denies: Traveled Outside the [place] in Last 30 Days - Family History Known Family History: Positive: Cardiac Disease, Hypertension, Diabetes - Social History Occupation: Unemployed - OTHER Lives: With Family Alcohol Use: Occasionally Hx Substance Use: No Substance Use Type: Reports: None Hx Tobacco Use: Yes Smoking Status (MU): Former Smoker Amount Used/How Often: 1/2 PPD X 5 YEARS Have You Smoked in the Last Year: No Review of Systems Positive: Palpitations, Chest Pain - "tightness" Positive: Other - pos: tachypnea Neurological: Other - neg: tingling to bilat hands and face All Other Systems Reviewed And Are Negative: Yes Physical Exam - Summary Physical Exam Summary: Appearance: Well appearing, no pain distress, obese Skin: warm, dry, reflects adequate perfusion Head/face: normal Eyes: EOMI, ELBERT ENT: mucous membranes moist Neck: supple, non-tender Respiratory: CTA, breath sounds present Cardiovascular: Tachy, pulses symmetrical Abdomen: non-tender, soft Bowel Sounds: present Musculoskeletal: normal, strength/ROM intact Neuro: normal, sensory motor intact, A&Ox3 Triage Information Reviewed: Yes Vital Signs On Initial Exam: Initial Vitals Temp Pulse Resp BP Pulse Ox 98.5 F 136 16 126/80 100 12/01/18 03:13 12/01/18 03:13 12/01/18 03:13 12/01/18 03:13 12/01/18 03:13 Vital Signs Reviewed: Yes Diagnostics - Vital Signs Vital Signs Temp Pulse Resp BP Pulse Ox 12/01/18 03:13 98.5 F 136 16 126/80 100 - Laboratory Result Diagrams: 12/01/18 03:47 12/01/18 03:47 Lab Statement: Any lab studies that have been ordered have been reviewed, and results considered in the medical decision making process. - EKG 0321 Cardiac Rate: Tachycardia - 125 bpm EKG Rhythm: Sinus Tachycardia ST Segment: Non-Specific Summary of EKG Findings: Normal axis. Re-Evaluation - Re-Evaluation 1 Re-Evaluation Time: 04:11 Change: Improved Comment: Discussing results with patient. Patient is feeling better. Course/Dx - Course Course Of Treatment: Nurse's notes reviewed. Patient has been worked up by me for the same symptoms in the past. She even had a VQ scan at that time. Intermittent tachycardia since. Symptoms gone with IV Lopressor. Laboratories benign. Follow-up cardiology. Continue outpatient metoprolol. - Diagnoses Differential Diagnosis/HQI/PQRI: Positive: Hyperventilation, Medication Induced , Panic Disorder, Paroxymal SVT, V-Tach Provider Diagnoses: Inappropriate sinus tachycardia Discharge - Sign-Out/Discharge Documenting (check all that apply): Patient Departure - D/C Patient Received Moderate/Deep Sedation with Procedure: No - Discharge Plan Condition: Improved Disposition: HOME Prescriptions: Metoprolol Succinate XL TAB* [Toprol XL TAB*] 25 mg PO BEDTIME #30 tab.xl Patient Education Materials: Tachycardia (ED) Referrals: Stu Whitehead MD [Primary Care Provider] - Landry Childress MD [Medical Doctor] - Additional Instructions: Call for an appointment with the program specialist first thing Monday. Stay well-hydrated. Avoid alcohol, caffeine, cough or cold medicines or anything else that might get your heart rate up. Return with chest pain, difficulty breathing, palpitations, worse or other concerns. - Billing Disposition and Condition Condition: IMPROVED Disposition: Home - Attestation Statements Document Initiated by Scribe: Yes Documenting Scribe: Caro Rangel Provider For Whom Renee is Documenting (Include Credential): Dr. Sivakumar Rachel MD Scribe Attestation: I, Caro Rangel, scribed for Dr. Sivakumar Rachel MD on 12/01/18 at 0507. Scribe Documentation Reviewed: Yes Provider Attestation: The documentation as recorded by the Caro sotelo accurately reflects the service I personally performed and the decisions made by me, Dr. Sivakumar Rachel MD Status of Scribe Document: Viewed
[2018-12-01] MEDS ORDERED: NS 0.9% 1000 ML** 1,000 ML IV ONE (03:31)
[2018-12-01] MEDS ORDERED: Metoprolol Tartrate IV* 1 MG/ML 5 ML VIAL IV ONE (03:32)
[2018-12-01] MEDS ORDERED: Famotidine TAB* 20 MG PO ONE (03:32)
[2018-12-01 03:56] LABS: ABS Basophils 0.1 10^3/ul (0-0.2); ABS Eosinophils 0.2 10^3/ul (0-0.6); ABS Lymphocytes 3.1 10^3/ul (1.0-4.8); ABS Monocytes 0.5 10^3/ul (0-0.8); ABS Neutrophils 7.8 10^3/ul (1.5-7.7); Eosinophil % 1.3 %; Hematocrit 38 % (35-47); Hemoglobin 12.6 g/dL (12.0-16.0); Lymphocyte % 26.4 %; Mean Corpuscular HGB Conc 33 g/dL (31-36); Mean Corpuscular Hemoglobin 29 pg (27-31); Mean Corpuscular Volume 86 fL (80-97); Mean Platelet Volume 7.4 fL (7.4-10.4); Platelet Count 279 10^3/uL (150-450); Red Blood Count 4.41 10^6 /uL (3.70-4.87); Red Cell Distribution Width 15 % (10-15); White Blood Count 11.6 10^3/uL (3.5-10.8)
[2018-12-01 04:11] LABS: ALT 5 U/L (7-52); AST 13 U/L (13-39); Albumin 4.1 g/dL (3.2-5.2); Albumin/Globulin Ratio 1.3 (1-3); Alkaline Phosphatase 80 U/L (34-104); Anion Gap 8 mmol/L (2-11); BUN/Creatinine Ratio 15.3 (8-20); Blood Urea Nitrogen 13 mg/dL (6-24); CO2 Carbon Dioxide 23 mmol/L (22-32); Calcium 8.8 mg/dL (8.6-10.3); Chloride 108 mmol/L (101-111); EGFR African American 88.3 (>60); Globulin 3.1 g/dL (2-4); Glucose 116 mg/dL (70-100); Magnesium 2.2 mg/dL (1.9-2.7); Sodium 139 mmol/L (135-145); Total Protein 7.2 g/dL (6.4-8.9)
[2018-12-01] MEDS ORDERED: Metoprolol Succinate XL TAB* 25 MG PO ONE (04:13)
[2018-12-01 04:24] VITALS: BP 117/82
[2018-12-01 04:59] LABS: Alcohol < 10 mg/dL (<10)
[2018-12-01 05:15] LABS: TSH (Thyroid Stimulating Horm) 3.67 mcIU/mL (0.34-5.60)
== END 2018-12-01 04:25 | disposition home or self-care (01) ==
LOC: ED 03:10
DX: R00.0 Tachycardia, unspecified (principal); R07.89 Other chest pain; J45.909 Unspecified asthma, uncomplicated; K21.9 Gastro-esophageal reflux disease without esophagitis; F41.9 Anxiety disorder, unspecified; F32.9 Major depressive disorder, single episode, unspecified; Z91.013 Allergy to seafood; Z91.048 Other nonmedicinal substance allergy status; Z82.49 Family history of ischemic heart disease and other diseases of the circulatory system; Z83.3 Family history of diabetes mellitus; Z87.891 Personal history of nicotine dependence
CPT/HCPCS: 36415; 80053; 80320; 83605; 83735; 84443; 84484; 85025; 93005; 96361; 96374; 99284; A9270-GY; G0480; J3490

== ENCOUNTER 2019-05-06 09:21 | Inpatient (IN) | payer BC ==
[~2019-05-06 09:21] MED LIST changes: +Buffered Lidocaine 1% SYRIN* 1 ML/SYRINGE INTRADERM ONE; +Dexamethasone TAB* 4 MG PO ONE; +DiMENhydriNATE IV* 50 MG/ML VIAL IV PUSH PRN; +Famotidine IV* 10 MG/ML 2 ML (20 mg) IV ONE; +Lactated Ringers 1000 ML Bag* 1,000 ML IV SCH; -NS 0.9% 1000 ML* 1,000 ML IV SCH; +Naloxone* 0.4 MG/ML 1 ML VIAL IV PRN; +Ondansetron ODT TAB* 4 MG PO ONE; +PROCHLORPERAZINE INJ 5 MG/ML 2 ML VIAL IV PRN; +Scopolamine 1.5 mg* PATCH TRANSDERM PRN; -Sodium Citrate/Citric Acid* 15 ML UDC PO ONE; +fentaNYL* 50 MCG/ML 2 ML VIAL (100 MCG VIAL) IV PRN
--- OUTSIDE RECORDS SUMMARY | 2019-05-06 09:25 | XMS REPORT | Continuity of Care Document ---
:1975 External Reference #:[id number] Author Name Viet Mckinney M.D. (transmitted by agent of provider Tori Lopez) Address [address] [place] [address] Care Team Providers Name Role Phone Stu Whitehead M.D. - Family Medicine Care Team Information Asbestos Cloth Inspector [phone] Problems Description No Information Available Social History Type Date Description Comments Sex Unknown Smokeless Tobacco Never Used Smokeless Tobacco ETOH Use Occasionally consumes alcohol Tobacco Use Start: Unknown End: Patient is a former 1/2 ppd x 8 years, Unknown smoker quit 2006 Recreational Drug Use Denies Drug Use Smoking Status Reviewed: 04/09/19 Patient is a former 1/2 ppd x 8 years, smoker quit 2006 Exercise Type/Frequency Exercises regularly Allergies, Adverse Reactions, Alerts Active Allergies Reaction Severity Comments Date Shellfish-derived Products Anaphylaxis 11/14/2013 Iodine Anaphylaxis 11/14/2013 Medications Active Medications SIG Qnty Indications Ordering Provider Date Doxycycline Take one 30caps Viet Mckinney, 04/09/2019 40mg capsule/tablet M.D. Capsules DR daily by mouth Plaquenil 1 by mouth every 30tabs Viet Mckinney, 02/21/2019 200mg day M.D. Tablets Diflucan take one 10tabs Viet Mckinney, 02/21/2019 150mg capsule/tablet M.D. Tablets daily by mouth daily as needed for fungal/yeast infection Albuterol Sulfate inhaler every 4-6 Unknown hours prn Clonazepam 1 tab by mouth prn Unknown 1mg Tablets Zoloft 2 by mouth every Unknown 100mg Tablets day Epipen 2-Bebeto use as directed Unknown 0.3mg/0.3ML Solution Auto-Inject Proair HFA 2 puffs every 4 Unknown hours as needed 108(90Base) mcg/Act Aerosol History Medications Penicillin V take one capsule/tablet 14tabs Viet Mckinney, 01/24/2019 - Potassium by mouth twice daily M.D. 02/21/2019 500mg Tablets Meloxicam Take one capsule/tablet 14tabs Viet Mckinney, 01/16/2019 - 7.5mg daily by mouth as M.D. 02/21/2019 Tablets needed for pain/ inflammation Medications Administered in Office Medication SIG Qnty Indications Ordering Provider Date Triamcinolone (Kenalog) Viet Mckinney M.D. 04/09/2019 Injection Depomedrol 80MG Josy Lema M.D. 12/12/2013 Injection Immunizations Description No Information Available Vital Signs Date Vital Result Comment 04/09/2019 10:32am Height 62 inches 5'2" Weight 224.00 lb Heart Rate 97 /min BP Systolic Sitting 106 mmHg BP Diastolic Sitting 68 mmHg Pain Level 5 O2 % BldC Oximetry 98 % BMI (Body Mass Index) 41.0 kg/m2 02/21/2019 9:54am Height 62 inches 5'2" Weight 223.00 lb Heart Rate 105 /min BP Systolic 103 mmHg BP Diastolic 64 mmHg Body Temperature 98.9 F O2 % BldC Oximetry 97 % BMI (Body Mass Index) 40.8 kg/m2 Results Test Date Facility Test Result H/L Range Note Laboratory test 04/05/2019 [facility] Erythrocyte Sed 38 mm/Hr High 0-[address] [place] [address] [phone] C Reactive Protein 22.08 mg/L High <8.01 Connective Tissue 04/05/2019 [facility] Anti-Nuclear Antibody 0.5 U [address] [place] [address] [phone] Cyclic Citrullinated Peptide <15.6 U 2 Interpretation See Comment 3 Laboratory test 04/05/2019 [facility] Rheumatoid < 10 Normal < [address] Factor IU/[place] [address] [phone] CBC Auto Diff 04/05/2019 [facility] White Blood 10.1 Normal 3.5-10. [address] Count 10^3/uL 8 [place] [address] [phone] Red Blood Count 4.31 10^6/uL Normal 3.70-4.87 Hemoglobin 12.8 g/dL Normal 12.0-16.0 Hematocrit 38 % Normal 35-47 Mean Corpuscular Volume 87 fL Normal 80-97 Mean Corpuscular Hemoglobin 30 pg Normal 27-31 Mean Corpuscular HGB Conc 34 g/dL Normal 31-36 Red Cell Distribution Width 15 % Normal 10-15 Platelet Count 279 10^3/uL Normal 150-450 Mean Platelet Volume 7.7 fL Normal 7.4-10.4 Abs Neutrophils 6.6 10^3/uL Normal 1.5-7.7 Abs Lymphocytes 2.9 10^3/uL Normal 1.0-4.8 Abs Monocytes 0.4 10^3/uL Normal 0-0.8 Abs Eosinophils 0.2 10^3/uL Normal 0-0.6 Abs Basophils 0.0 10^3/uL Normal 0-0.2 Abs Nucleated RBC 0.0 10^3/uL Granulocyte % 65.3 % Lymphocyte % 28.6 % Monocyte % 4.1 % Eosinophil % 1.6 % Basophil % 0.4 % Nucleated Red Blood Cells % 0.1 Comp Metabolic 04/05/2019 [facility] Sodium 139 mmol/L Normal 135-[address] [place] [address] [phone] Potassium 4.4 mmol/L Normal 3.5-5.0 Chloride 104 mmol/L Normal 101-111 Co2 Carbon Dioxide 30 mmol/L Normal 22-32 Anion Gap 5 mmol/L Normal 2-11 Glucose 95 mg/dL Normal 70-100 Blood Urea Nitrogen 13 mg/dL Normal 6-24 Creatinine 0.76 mg/dL Normal 0.51-0.95 BUN/Creatinine Ratio 17.1 Normal 8-20 Calcium 8.9 mg/dL Normal 8.6-10.3 Total Protein 7.0 g/dL Normal 6.4-8.9 Albumin 4.1 g/dL Normal 3.2-5.2 Globulin 2.9 g/dL Normal 2-4 Albumin/Globulin Ratio 1.4 Normal 1-3 Total Bilirubin 0.20 mg/dL Normal 0.2-1.0 Alkaline Phosphatase 81 U/L Normal 34-104 Alt 7 U/L Normal 7-52 Ast 13 U/L Normal 13-39 Egfr Non- 83.1 >60 Egfr 100.5 >60 4 CBC Auto 01/29/2019 [facility] White Blood 12.1 10^3/uL High 3.5-10.[address] Count [place], [place] [id number] [phone] Red Blood Count 4.24 10^6/uL Normal 3.70-4.87 Hemoglobin 12.6 g/dL Normal 12.0-16.0 Hematocrit 37 % Normal 35-47 Mean Corpuscular Volume 86 fL Normal 80-97 Mean Corpuscular Hemoglobin 30 pg Normal 27-31 Mean Corpuscular HGB Conc 34 g/dL Normal 31-36 Red Cell Distribution Width 15 % Normal 10-15 Platelet Count 278 10^3/uL Normal 150-450 Mean Platelet Volume 7.5 fL Normal 7.4-10.4 Abs Neutrophils 8.5 10^3/uL High 1.5-7.7 Abs Lymphocytes 2.5 10^3/uL Normal 1.0-4.8 Abs Monocytes 0.5 10^3/uL Normal 0-0.8 Abs Eosinophils 0.4 10^3/uL Normal 0-0.6 Abs Basophils 0.1 10^3/uL Normal 0-0.2 Abs Nucleated RBC 0.0 10^3/uL Granulocyte % 70.2 % Lymphocyte % 21.1 % Monocyte % 4.1 % Eosinophil % 3.5 % Basophil % 1.1 % Nucleated Red Blood Cells % 0.0 Laboratory test 01/29/2019 [facility] Blood SEE RESULT [address] [place] [address] [phone] Tick-Borne Panel 01/29/2019 [facility] Babesia Negative Negative PCR Blood [address] [place] [address] [phone] Babesia ducani Negative Negative Babesia divergens/Mo-1 Negative Negative 6 Anaplasma phagocytophilum Negative Negative Ehrlichia chaffeensis Negative Negative Ehrlichia ewingii/canis Negative Negative Ehrlichia muris eauclairensis Negative Negative 7 B. miyamotoi PCR, B Negative Negative 8 Elham Dietrich 01/29/2019 [facility] Ebv Capsid Positive Negative Comprehensive [address] [place] [address] [phone] Ebv Capsid Ag IgM Ab Negative Negative Elham-Dietrich Nuclear Antigen Positive Negative Elham-Dietrich Virus Interp See Comment 9 CMV Igg/Igm 01/29/2019 [facility] Cytomegalovirus IgG Negative Negative [address] [place] [address] [phone] Cytomegalovirus IgM Antibody Negative Negative Mumps Virus AB 01/29/2019 [facility] Mumps Virus IgG Positive 11 Igg & Igm [address] [place] [address] [phone] Mumps IgG Antibody Index 1.7 12 Mumps Virus IgM Antibody Negative Negative Mumps IgM Antibody Index 0.15 0.00-0.79 Laboratory test 01/17/2019 [facility] Ferritin 103.2 ng/mL Normal 11-[address] [place] [address] [phone] Nmo Igg Negative Negative 13 Laboratory test 01/11/2019 [facility] Cortisol 2.65 g/dL [address] [place] [address] [phone] Protein 01/11/2019 [facility] Total 7.0 g/dL 6.3 - Electrophoresis [address] Protein(Pep) 7.9 [place] [address] [phone] Albumin 3.5 g/dL 3.4-4.7 Alpha-1 Globulin 0.2 g/dL 0.1-0.3 Alpha-2 Globulin 1.0 g/dL 0.6-1.0 Beta Globulin 1.2 g/dL 0.7-1.2 Gamma Globulin 1.2 g/dL 0.6-1.6 Albumin/Globulin Ratio 0.98 Impression See Comment 15 Laboratory test 01/11/2019 [facility] Thyroperoxidase AB 0.77 Normal <[address] IU/[place] [address] [phone] TSH (Thyroid Stim Horm) 1.22 mcIU/mL Normal 0.34-5.60 Free T4 (Free Thyroxine) 0.64 ng/dL Normal 0.61-1.12 Angiotensin Converting Enzyme 40 U/L 16 - 85 16 Creatine Kinase(CK) 55 U/L Normal 10-223 Aldolase 4.4 U/L <7.7 17 Aso (Antistreptolysin O) Titer 400 IU/mL IU/mL Abnormal <200 Iu/mL 18 Alkaline Phosphatase 88 U/L Normal 34-104 Ssa/SSB Abs Igg 01/11/2019 [facility] SS-A/Ro Antibody <0.2 U 19 [place] [address] [phone] SS-B/La Antibody <0.2 U 20 Laboratory test 01/11/2019 [facility] Anti Double <12.3 IU/mL 21 finding [facility] [place] [address] [phone] Hla B27 01/11/2019 [facility] Hla B27 Negative 22 [facility] [place] [address] [phone] Hla B27 Interp See Comment 23 Laboratory test 01/11/2019 [facility] Magnesium 2.3 mg/dL Normal 1.9-2.7 finding [facility] [place] [address] [phone] T3 Free 3.30 pg/mL Normal 2.5-3.9 Anca AB Ser If 01/11/2019 [facility] C-Anca Negative Negative [facility] [place] [address] [phone] P-Anca Negative Negative 24 Laboratory test 01/11/2019 [facility] C Reactive 18.79 mg/L High <8.01 finding [facility] [place] [address] [phone] Erythrocyte Sed Rate 62 mm/Hr High 0-19 Porphyrins 01/11/2019 [facility] Porphyrins See Comment 25 Fractionated [facility] [place] [address] [phone] Porphyrins Interpretation See Comment 26 Total Porphyrins <1.0 g/dL <=1.0 1 REFERENCE VALUE <=1.0 (Negative) 2 REFERENCE VALUE <20.0 (Negative) 3 Tests for antibodies to dsDNA and SHIRA antigens are not performed automatically unless the JORGE result is > or = 3.0 U. Studies performed at [facility] indicate that positive JORGE results <3.0 U are rarely accompanied by positive second order tests. Test Performed by: [facility] - [facility] [address] [facility], [place] [address] Crane Engineer: Michelet Burger M.D. Ph.D.; CLIA# [id number] 4 Because ethnic data is not always readily available, this report includes an eGFR for both -Americans and non- Americans. The National Kidney Disease Education Program (NKDEP) does not endorse the use of the MDRD equation for patients that are not between the ages of 18 and 70, are , have extremes of body size, muscle mass, or nutritional status, or are non- or non-. According to the National Kidney Foundation, irrespective of diagnosis, the stage of the disease is based on the level of kidney function: Stage Description GFR(mL/min/1.73 m(2)) 1 Kidney damage with normal or decreased GFR 90 2 Kidney damage with mild decrease in GFR 60-89 3 Moderate decrease in GFR 30-59 4 Severe decrease in GFR 15-29 5 Kidney failure <15 (or dialysis) 5 SEE RESULT BELOW Name: PARISH LINDO : [address]: Moy Guy MD Acct: [id number] Unit: [id number] AGE: 43 Location: LAB Re01/29/19 SEX: F Status: REG REF SPEC: [id number] CHARLENE: 01/29/[address]: Moy Guy MD REQ: [id number] RECD: 01/29/19 STATUS: RES _ SOURCE: BLOOD,VENO SPDES: ORDERED: Blood Cult Procedure Result Reported Site Aerobic Culture Bottle Preliminary 02/02/19- 1702 ML No Growth Day 4 Anaerobic Culture Bottle Final 02/03/19- 1701 ML No Growth Day 5 * ML - Main Lab . END OF REPORT DEPARTMENT OF PATHOLOGY, [address] [place] [address] Corby Ibarra M.D. Director ADELINE # [id number] 6 ADDITIONAL INFORMATION This test was developed and its performance characteristics determined by [facility] in a manner consistent with CLIA requirements. This test has not been cleared or approved by the U.S. Food and Drug Administration. 7 ADDITIONAL INFORMATION This test was developed and its performance characteristics determined by [facility] in a manner consistent with CLIA requirements. This test has not been cleared or approved by the U.S. Food and Drug Administration. 8 ADDITIONAL INFORMATION This test was developed and its performance characteristics determined by [facility] in a manner consistent with CLIA requirements. This test has not been cleared or approved by the U.S. Food and Drug Administration. Test Performed by: [facility] [place] [address] 9 RESULT: Results suggest past infection. ADDITIONAL INFORMATION In most populations, at least 90% of the adult population will have been infected with EBV sometime in the past and therefore, will be positive for anti-VCA/IgG and anti- EBNA. Antibodies to EBNA develop 6-8 weeks after primary infection and remain present for life. Presence of VCA/ IgM antibodies indicates recent primary infection with EBV. Test Performed by: [facility] [employer] [facility] [place] [employer] [address] [place] [address] 10 Test Performed by: [facility] - [facility] [employer] [address] [place] [address] 11 Results suggest response to immunization or prior exposure to the virus. REFERENCE VALUE Vaccinated: Positive (>=1.1 AI) Unvaccinated: Negative (<=0.8 AI) 12 Test Performed by: [address] [address] 13 Recommend repeat testing in 6 months if clinical suspicion is high. Negative result can occur in the setting of immunosuppression. ADDITIONAL INFORMATION This test was developed and its performance characteristics determined by [facility] in a manner consistent with CLIA requirements. This test has not been cleared or approved by the U.S. Food and Drug Administration. Test Performed by: [place] [address] 14 AM 8.7-22.4 PM <10 15 RESULT: No apparent monoclonal protein on serum electrophoresis. Test Performed by: [place] [address] 16 Test Performed by: [place] [address] 17 Test Performed by: [place] [address] 18 Normal values may vary with age, season and geographic area. Titers above upper limits may be indicative of infection, however only a two dilution rise in titer is required to be considered significant. ASO titer will usually rise above upper limits within one week of exposure, increase to peak levels at 3-5 weeks and return to baseline level at 6-12 twelve months. 19 REFERENCE VALUE <1.0 (Negative) 20 REFERENCE VALUE <1.0 (Negative) Test Performed by: [place] [address] 21 REFERENCE VALUE <30.0 (Negative) Test Performed by: [address], [place] [address] 22 REFERENCE VALUE Not Applicable 23 RESULT: HLA-B27 antigen was not detected. ADDITIONAL INFORMATION Method: Flow Cytometry Performing Laboratory CLIA# [id number] Test Performed by: [facility] - [address] [address] 24 Negative for cANCA and pANCA patterns by immunofluorescence. ADDITIONAL INFORMATION This test was developed and its performance characteristics determined by [facility] in a manner consistent with CLIA requirements. This test has not been cleared or approved by the U.S. Food and Drug Administration. Test Performed by: [facility] [employer] - [address] [address] 25 RESULT: Fawn Dawson M.D. 26 Total plasma porphyrins are normal, fractionation not performed. ADDITIONAL INFORMATION Spectrofluorometry This test was developed and its performance characteristics determined by [facility] in a manner consistent with CLIA requirements. This test has not been cleared or approved by the U.S. Food and Drug Administration. Test Performed by: [facility] [employer] - [address] [address] Procedures Date Code Description Status 04/09/2019 99410 Admin Of Inj Completed 03/14/2019 50834 ECHO Transthorasic Realtime 2D W Doppler & Color Flow Hosp Completed 02/13/2019 11874 Holter Monitor Review (24 hr)dr review & interp only Completed 02/11/2019 78513 ECG Monitor/Recording W/Visual Superimposition Scanning Completed 01/18/2019 97015 EKG Tracing & Interpretation Completed Medical Devices Description No Information Available Encounters Type Date Location Provider Dx Diagnosis Office Visit 02/21/2019 Rheumatology Viet Mckinney, L40.50 Arthropathic 10:00a [facility] psoriasis, unspecified Z79.899 Other long term care pharmacist (current) drug therapy R70.0 Elevated erythrocyte sedimentation rate R20.8 Other disturbances of skin sensation M25.552 Pain in left hip Office Visit 01/28/2019 [facility] Moy Gannon R70.0 Elevated 3:00p For Infectious Kevyn Guy erythrocyte Diseases sedimentation rate R50.9 Fever, unspecified Office Visit 01/18/2019 2:20p [facility] Iain Alford R06.02 Shortness of Of Jeromy Villavicencio, DO breath FACC R00.2 Palpitations I49.3 Ventricular premature depolarization R00.0 Tachycardia, unspecified Office Visit 01/11/2019 Rheumatology Viet M06.4 Inflammatory 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 polyarthropathy R70.0 Elevated erythrocyte sedimentation rate R13.19 Other dysphagia R20.8 Other disturbances of skin sensation R51 Headache Assessments Date Code Description Provider 04/09/2019 L40.50 Arthropathic psoriasis, unspecified Viet Mckinney M.D. 04/09/2019 Z79.899 Other [facility] (current) drug therapy Viet Mckinney M.D. 04/09/2019 R70.0 Elevated erythrocyte sedimentation rate Viet Mckinney M.D. 04/09/2019 M79.10 Myalgia, unspecified site Viet Mckinney M.D. 03/14/2019 R00.2 Palpitations Iain Villavicencio DO FACC 02/21/2019 L40.50 Arthropathic psoriasis, unspecified Viet Mckinney M.D. 02/21/2019 Z79.899 Other [facility] (current) drug therapy Viet Mckinney M.D. 02/21/2019 R70.0 Elevated erythrocyte sedimentation rate Viet Mckinney M.D. 02/21/2019 R20.8 Other disturbances of skin sensation Viet Mckinney M.D. 02/21/2019 M25.552 Pain in left hip Viet Mckinney M.D. 02/13/2019 R00.2 Palpitations Iain Villavicencio DO FACC 02/11/2019 R00.2 Palpitations Iain Villavicencio, DO [facility] 01/28/2019 R70.0 Elevated erythrocyte sedimentation rate Moy Guy M.D. 01/28/2019 R50.9 Fever, unspecified Moy Guy M.D. 01/18/2019 R06.02 Shortness of breath Iain Villavicencio, DO [facility] 01/18/2019 R00.2 Palpitations Iain Villavicencio, DO [facility] 01/18/2019 I49.3 Ventricular premature depolarization Iainpatricia Villavicencio, DO [facility] 01/18/2019 R00.0 Tachycardia, unspecified Iain Villavicencio, DO [facility] 01/11/2019 M06.4 Inflammatory polyarthropathy Viet Mckinney M.D. 01/11/2019 R70.0 Elevated erythrocyte sedimentation rate Viet Mckinney M.D. 01/11/2019 R13.19 Other dysphagia Viet Mckinney M.D. 01/11/2019 R20.8 Other disturbances of skin sensation Viet Mckinney M.D. 01/11/2019 R51 Headache Viet Mckinney M.D. Plan of Treatment Future Appointment(s):05/21/2019 10:40 am - Viet Mckinney M.D. at [facility]08/06/2019 8:30 am - Vasiliy Clayton M.D. at [place] [facility]04/30/2019 4:00 pm - Gema Nicholas MD at [facility] Arsxmkjxdax72/15/2019 - Viet Mckinney M.D.L40.50 Arthropathic psoriasis, unspecifiedFollow up:Follow up in 4 to 6 weeks or sooner if ubbnbbL31.899 Other long term care pharmacist (current) drug [id number] Elevated erythrocyte sedimentation rateM79.10 Myalgia, unspecified site Functional Status Description No Information Available Mental Status Description No Information Available Referrals Refer to Reason for Referral Status Appt Date Vasiliy Clayton M.D. Please evaluate and treat patient with Sent 2019 headaches, floaters and numbness/ tingling; history of an inflammatory arthropathy [address] [place] [address] [place] [address] [phone] Terry Roth MD Please monitor for Plaquenil toxicity Sent [address] [place] [address] [phone] Moy Guy MD Please evaluate patient with ongoing Scheduled 01/2019 fevers, sore throat and lymph node swelling, elevated ASO titers and inflammatory markers for a possible ID etiology [address] [place] [address] [place] [address] [phone]
[2019-05-06] MEDS ORDERED: Dexamethasone TAB* 4 MG ONE (09:34)
[2019-05-06] MEDS ORDERED: fentaNYL* 50 MCG/ML 5 ML VIAL (250 MCG VIAL) ONE (09:34)
[2019-05-06] MEDS ORDERED: Ondansetron ODT TAB* 4 MG ONE (09:34)
[2019-05-06] MEDS ORDERED: Heparin VIAL(*) 5000 UNITS/ML VIAL (FIVE THOUSAND) ONE (09:34)
[2019-05-06] MEDS ORDERED: ceFAZolin 1 GM ADVAN(*) 1 GM ADDV.VIAL IVPB ONE (09:34)
[2019-05-06] MEDS ORDERED: Rocuronium* 10 MG/ML VIAL ONE (09:35)
[2019-05-06] MEDS ORDERED: KETAMINE HCL* 50 MG/ML 10 ML VIAL ONE (09:35)
[2019-05-06] MEDS ORDERED: Buffered Lidocaine 1% SYRIN* 1 ML/SYRINGE INTRADERM ONE (09:35)
[2019-05-06] MEDS ORDERED: Famotidine IV* 10 MG/ML 2 ML (20 mg) ONE (09:35)
[2019-05-06] MEDS ORDERED: ceFAZolin 2 GM in NS PREMIX(*) 2 GM/100 ML BAG IVPB ONE (09:35)
[2019-05-06] MEDS ORDERED: Midazolam* 1 MG/ML 5 ML VIAL (5 MG) ONE (09:35)
[2019-05-06] MEDS ORDERED: Methylene Blue 0.5 %* 50 MG/10 ML AMP IV ONE (10:22)
[2019-05-06] MEDS ORDERED: Bupivacaine 0.25% EPI 200,000* 30 ML SDV ONE (10:22)
[2019-05-06] MEDS ORDERED: Propofol* 10 MG/ML 20 ML BTL ONE (11:18)
[2019-05-06] MEDS ORDERED: Phenylephrine 10 MG/ML VIAL* 1 ML VIAL ONE (11:18)
[2019-05-06] MEDS ORDERED: Lidocaine 2% PF * 5 ML VIAL ONE (11:18)
[2019-05-06] MEDS ORDERED: Sugammadex * 200 MG/2 ML VIAL IV PUSH ONE (11:18)
[2019-05-06] MEDS ORDERED: Acetaminophen IV 1GM/100ML * 100 ML ONE (11:18)
[2019-05-06] MEDS ORDERED: HYDROmorphone INJ1* 1 MG/ML SYRINGE ONE ×4 (11:39→14:05)
[2019-05-06] MEDS ORDERED: Metoprolol Tartrate IV* 1 MG/ML 5 ML VIAL ONE (13:05)
--- NOTE | 2019-05-06 13:25 | BRIEFOPN ---
Brief Operative/Procedure Note - Operation Details Pre-Op Diagnosis: Morbid Obesity Post-Op Diagnosis: Same Procedures: Laparoscopic Lyla en Y Gastric Bypass Surgeon(s)/Proceduralists: Dr. Vallecillo. Assist: GIOVANNY Mejia & PARVIN Eugene Anesthesia: GET Estimated Blood Loss: <50 ml; IVF: 1700 ml LR Findings: As above. Adhesions from prior lap band Specimen(s)/Culture(s) Description: None Complications: None
[2019-05-06] MEDS ORDERED: Acetaminophen ADULT LIQ* 650 MG/20.3 ML UDC PO PRN (13:33)
[2019-05-06] MEDS ORDERED: HYDROmorphone INJ* 0.5 MG/0.5 ML SYRINGE IV SLOW PU PRN (13:33)
[2019-05-06] MEDS ORDERED: Ondansetron INJ* 2 MG/ML VIAL IV PRN (13:33)
[2019-05-06] MEDS: HYDROmorphone INJ1* 1 MG/ML SYRINGE IV PRN ×3 (13:40→13:50)
[2019-05-06] MEDS ORDERED: Albuterol HFA INHALER* 8 gm MDI INH PRN (13:41)
[2019-05-06] MEDS ORDERED: LORazepam INJ* 2 MG/ML 1 ML VIAL IV PUSH PRN (13:44)
[2019-05-06] MEDS ORDERED: Lorazepam PYXIS KEY PRN (13:44)
[2019-05-06] MEDS: HYDROmorphone INJ1* 1 MG/ML SYRINGE IV SLOW PU PRN ×2 (13:55→20:27)
[2019-05-06] MEDS ORDERED: Ketorolac INJ* 30 MG/ML 1 ML VIAL IV SCH (14:00)
[2019-05-06] MEDS: Ketorolac INJ* 30 MG/ML 1 ML VIAL IV SCH ×2 (16:12→21:40)
[2019-05-06] MEDS: Famotidine IV* 10 MG/ML 2 ML (20 mg) IV SLOW PU SCH (21:40)
[2019-05-06] MEDS: Heparin VIAL(*) 5000 UNITS/ML VIAL (FIVE THOUSAND) SUBCUT SCH (21:40)
[2019-05-06] MEDS: Lactated Ringers 1000 ML Bag* 1,000 ML IV SCH (22:23)
[2019-05-07] MEDS: HYDROmorphone INJ1* 1 MG/ML SYRINGE IV SLOW PU PRN ×2 (00:23→08:17)
[2019-05-07] MEDS: Ketorolac INJ* 30 MG/ML 1 ML VIAL IV SCH ×4 (04:12→22:29)
[2019-05-07] MEDS: Lactated Ringers 1000 ML Bag* 1,000 ML IV SCH ×2 (05:01→10:39)
[2019-05-07] MEDS: Heparin VIAL(*) 5000 UNITS/ML VIAL (FIVE THOUSAND) SUBCUT SCH ×3 (05:38→22:28)
--- NOTE | 2019-05-07 07:27 | PN ---
Progress Note - Progress Note Date of Service: 05/07/19 SOAP: Subjective: Feeling well. Pain controlled. No nausea. Objective: Vital Signs Temp 98.3 F 05/07/19 07:24 Pulse 56 05/07/19 07:24 Resp 16 05/07/19 07:24 BP 107/62 05/07/19 07:24 Pulse Ox 100 05/07/19 07:24 Abd: incisions c/d/i; soft and mildly tender. Intake & Output 05/06/19 05/07/19 05/07/19 18:59 06:59 18:59 Intake Total 2099 1976 Output Total 600 Balance 2099 1377 Weight 221 lb 9.6 oz 229 lb Intake: IV Fluids 2099 1976 3GM CEFAZOLIN 100ML 100 LR 1977 lr 2000 Oral 0 Output: Urine 600 Other: Estimated Void Large # Bowel Movements 0 # Voids 1 2 Assessment: POD#1 s/p LRYGB. Doing well. Plan: Adv diet. Amb. PO meds. Home likely tomorrow.
[2019-05-07] MEDS: Famotidine IV* 10 MG/ML 2 ML (20 mg) IV SLOW PU SCH ×2 (08:18→21:10)
[2019-05-07] MEDS: BRIMONIDINE TARTRATE TP SCH (10:04)
--- NOTE | 2019-05-07 10:53 | PN ---
Progress Note - Progress Note Date of Service: 05/07/19 SOAP: Subjective: [] Dorothy is a pleasant 43 yo female POD #1 s/p Lyla en Y Gastric Bypass. Pt states she feels well today. She tells me she is belching but has not yet passed flatus. No BM. Pt reports moderate epigastric discomfort that she describes as a pressure and rates a 6/10. She states that she is ambulating without difficulty. She is currently tolerating PO clear liquids. No appetite. She denies nausea or vomiting. Pt denies fever, hills, night sweats, dysuria, SOB, cough, chest pain, incision site pain. Objective: [] Vital Signs - 12 hr Temp Pulse Resp BP Pulse Ox 05/07/19 09:21 16 05/07/19 08:17 16 05/07/19 08:05 16 100 05/07/19 07:24 98.3 F 56 16 107/62 100 05/07/19 04:14 18 05/07/19 04:05 98 F 88 18 113/69 99 05/07/19 00:28 18 05/07/19 00:23 18 05/06/19 23:10 98.2 F 89 18 104/65 97 Intake & Output 05/05/19 05/06/19 05/07/19 05/08/19 06:59 06:59 06:59 06:59 Intake Total 4077 Output Total 600 Balance 3477 Weight 229 lb Intake: IV Fluids 4077 3GM CEFAZOLIN 100ML 100 LR 1977 lr 2000 Oral 0 Output: Urine 600 Other: Estimated Void Large # Bowel Movements 0 # Voids 2 General: NAD, resting comfortably in bed. Respiratory: CTA, no wheezes, rails or rhonchi. Cardiovascular: Regular rate and rhythm. No murmurs, rubs or gallops. Abdomen: Hypoactive bowel sounds, non-distended. Moderately tender in epigastric region. No surgical incision tenderness. Peripheral Vascular: Calves are soft and non-tender bilaterally. UE & LE Capillary refill <2 seconds. There is no peripheral edema. Skin: Surgical incisions are clean, dry and intact. There is no rash, erythema, edema or warmth. Assessment: [] POD #1 s/p Lyla en Y Gastric Bypass Plan: [] Advance diet as tolerated. Encourage increased ambulation.
[2019-05-07] MEDS: BRIMONIDINE TOPICAL SCH (11:41)
[2019-05-07] MEDS: HYDROcodone/ACET. 7.5/325 LIQ* 15 ML UDC PO PRN ×2 (11:53→21:11)
[2019-05-07] MEDS: D5W 1/2 NS KCl 20 Meq 1000 ML* 1,000 ML IV SCH ×2 (14:50→23:01)
--- NOTE | 2019-05-07 21:13 | OP ---
CC: [facility]; Stu Whitehead MD * DATE OF OPERATION: 05/06/19 - ROOM #352 DATE OF : 75 SURGEON: Stu Vallecillo MD RETINA SUBSPECIALIST: GIOVANNY Rapp ANESTHESIOLOGIST: Dr. Veras. ANESTHESIA: General endotracheal. PRE-OP DIAGNOSIS: Clinically severe obesity. POST-OP DIAGNOSIS: Clinically severe obesity. OPERATIVE PROCEDURE: Laparoscopic Carie-en-Y gastric bypass. ESTIMATED BLOOD LOSS: Less than 50 mL. IV FLUIDS: 1.7 L crystalloids. SPECIMENS: None. DRAINS: None. COMPLICATIONS: None. COUNTS: Instrument, needle, and sponge counts correct. DESCRIPTION OF PROCEDURE: The patient was brought to the operating room, placed on the table supine. Sequential compression devices were placed on both lower extremities. General anesthesia was administered. The abdomen was prepped and draped in the usual sterile fashion. A time-out was performed. Local anesthetic was infiltrated to the skin and soft tissue prior to making each incision. Entry to the abdomen was through a left upper quadrant incision accommodating a 12 mm mm Optical trocar. After accessing peritoneal cavity, carbon- dioxide was insufflated to a pressure of 15 mmHg. Under direct visualization, 12 mm bladeless trocar was placed in the supraumbilical midline and also in the right upper quadrant. A 5-mm trocar was placed in the right upper quadrant medially and left upper quadrant laterally. A Jimi liver retractor was placed percutaneously in the subxiphoid position and used to elevate the left lobe of the liver. There were noted to be adhesions beneath the left lobe of the liver necessitating adhesiolysis. The adhesions were from the old band capsule and a lesser omentum to the under surface of the liver. Dissection was performed using sharp dissection as well as LigaSure cautery. The liver retractor was repositioned and inspection revealed that there were still some plicating sutures left from the previous band placement. Therefore, the dissection proceeded with taking down these plicating sutures. Inspection revealed the gastric wall was uninjured. Next, a perigastric dissection was undertaken on the lesser curvature approximating the second crossing vein and then the lesser sac was entered. A transverse firing was created with the EndoGIA stapler with a 4 to 5 mm purple cartridge. With additional firings of the EndoGIA stapler with purple cartridges, the gastric pouch was created directing the stapler towards the angle of His. Gastric pouch was created approximating 15 to 30 mL volume. There was some oozing from the distal gastric staple line on the stomach and that was controlled with endoscopic clip placement. Otherwise the staple lines were noted to be intact and hemostatic. There was one jagged area on the remnant stomach which was felt to be poorly vascularized and therefore this was removed with another firing of the EndoGIA stapler removing this small 2 cm segment which was not submitted for pathologic analysis. At this point the 34-Malian gastric lavage tube was positioned with this tip abutting the end of the gastric pouch staple line. The omentum and transverse colon were retracted cephalad. The Ligament of Treitz was identified. The jejunum was measured out approximately 50 to 60 cm and this loop was sutured to the left lateral staple line of the gastric pouch with interrupted 2-0 silk sutures. The gastrojejunal anastomosis was then created with the EndoGIA stapler using a 30 mm singer cartridge. The common gastroenterotomy was run closed with a 3-0 PDS using a Stratafix over the 34- Malian tube. Subsequently, the jejunal loop was divided with the EndoGIA stapler with the singer cartridge to the left of the anastomosis to complete the anastomosis. The anastomosis was tested with methylene blue dye solution instilled through the orogastric tube. No leaks were identified. Tubing and methylene blue dye solution were withdrawn. Jejunal limb was then measured out for 75 cm carie limb. At this point, a functional end-to-side jejunojejunostomy was created with the EndoGIA stapler with a 60 mm singer cartridge. The common enterotomy here was closed with a 3- 0 suture of V-Loc 90. This went to and fro. Then 3- 0 silks were used as anti- obstruction sutures at the proximal and at the anastomosis. Then the jejunal mesenteric defect was closed with interrupted 3- 0 silk sutures. Inspection revealed proper orientation of the bowel. No evidence of bleeding and the liver retractor was able to be removed from the ports and the carbon dioxide was removed from the abdomen. The incisions were closed with 4-0 Monocryl for the skin and then Dermaflex was applied. The patient was extubated uneventfully and transferred to the recovery room in stable condition. [id number]/[facility] #: [id number] [facility] HOSPITALDayo
[2019-05-08] MEDS: Ketorolac INJ* 30 MG/ML 1 ML VIAL IV SCH ×2 (03:53→09:58)
[2019-05-08] MEDS: Heparin VIAL(*) 5000 UNITS/ML VIAL (FIVE THOUSAND) SUBCUT SCH (05:21)
[2019-05-08] MEDS: D5W 1/2 NS KCl 20 Meq 1000 ML* 1,000 ML IV SCH (07:20)
[2019-05-08 08:20] VITALS: BP 104/43
[2019-05-08] MEDS: BRIMONIDINE TARTRATE TP SCH (09:21)
[2019-05-08] MEDS: Famotidine IV* 10 MG/ML 2 ML (20 mg) IV SLOW PU SCH (09:21)
[2019-05-08] MEDS: BRIMONIDINE TOPICAL SCH (09:22)
--- NOTE | 2019-05-08 09:59 | DS ---
Discharge Summary Surgeon: Ruth Ann Admit Date:05/06/19 Discharge Date:05/08/19 D/C diagnosis: Morbid Obesity Reason For Admission:Morbid Obesity Assessment of Condition at Discharge:Stable Date of D/C PEX: Gen: NAD Chest:CTA CVS: RRR ABD:incisions C/D/I EXT:calves soft Labs:none Procedures Performed:Laparoscopic Lyla en Y Gastric Bypass Treatment Rendered:Pt was taken to the OR on 05/06/19 for a laparoscopic lyla en y gastric bypass, tolerated well and tx'd to the [facility] for post op care. Past op period was uneventful, pt tolerated diet advace to bariatric clears with out difficulty. + Flatus on pod 2 wants to go chidi. Pt also seen by Dr Vallecillo Discharge instructions were given to the patient regarding Diet, Medications, Activity, and post operative Follow up. All Questions were answered. Discharged Home in Stable Condition on DATE-05/08/[address] Vallecillo
[2019-05-09] MEDS ORDERED: Scopolamine PATCH Remove* 1 NOTE MISC PATCH OFF ONE (05:55)
== END 2019-05-08 11:00 | disposition home or self-care (01) | DRG 403 ==
LOC: AA 09:21 → SSU 15:23
PROVIDERS: ADMIT Surgery; ATTEND Surgery
PROC: 0D164ZA Bypass Stomach to Jejunum, Percutaneous Endoscopic Approach (ICD-10-PCS; principal; 2019-05-06 11:00)
DX: E66.01 Morbid (severe) obesity due to excess calories (principal); L40.50 Arthropathic psoriasis, unspecified; F41.9 Anxiety disorder, unspecified; F32.9 Major depressive disorder, single episode, unspecified; Z91.041 Radiographic dye allergy status; Z91.013 Allergy to seafood; Z68.41 Body mass index [BMI] 40.0-44.9, adult; Z90.711 Acquired absence of uterus with remaining cervical stump; Z83.3 Family history of diabetes mellitus; Z72.89 Other problems related to lifestyle; Z87.891 Personal history of nicotine dependence
CPT/HCPCS: 43644; A9270-GY; C1776; J0690; J1170; J1644; J1885; J2250; J2405; J2704; J3010; J3490; J8540